=== PATIENT | female | born 1970 | race Caucasian/White ===

== ENCOUNTER 2018-05-13 13:33 | Outpatient (CLI) | payer OTHER ==
--- NOTE | 2018-05-13 15:28 | RAD ---
THREE VIEWS LEFT HAND: 05/13/18 COMPARISON: None. HISTORY: Left thumb bruising and pain. FINDINGS: Three views of the left hand shows no evidence of acute fracture or dislocation. No soft tissue swell ing is seen. No degenerative changes are present. IMPRESSION: No evidence of acute osseous abnormality. POS: [facility]
== END 2018-05-13 13:34 | disposition home or self-care (01) ==
LOC: SCSRAD 13:33
PROVIDERS: ATTEND Family Medicine
DX: M79.645 Pain in left finger(s) (principal)